=== PATIENT | male | born 1960 | race Hispanic/Latino ===

== ENCOUNTER 2024-02-05 08:00 | Outpatient (RCR) | payer OTHER, SELFPAY ==
[2024-01-07 14:25] VITALS: BP_SYST 145
--- NOTE | 2024-01-07 15:28 | OPREHPOC ---
Outpatient Therapy Plan of Care This is a Multidisciplinary Plan of Care that may contain components documented by all disciplines (PT, OT, and ST.) PT Problem 1 PT Problem #1 Knowledge Deficit PT Goal 1 Goal *indep with HEP * correct body position with exercises Target Visit 6 PT Problem 2 PT Problem #2 Pain PT Goal 1 Goal 1* pain at worst of 7/10 Target Visit 6 PT Problem 3 PT Problem #3 Impaired Strength PT Goal 1 Goal increase strength of R shoulder to improve use of his dominant UE: in standing: active x 10 reps: 1* flexion to 100' 2* abduction to 95' Target Visit 6
--- NOTE | 2024-01-07 15:28 | PTOPEVAL1 ---
Assessment and note entered by Janett Hidalgo, PT Evaluation Information Assessment Status Evaluation Diagnosis R shoulder pain Onset May 2023 Subjective Information no trauma to arm, but arm swollen and turned black and blue when woke up one morning; did xrays and MRI- per pt: muscle atrophy of shoulder and shoulder is not in the correct place, ball is falling out of the socket; Is scheduled for R total shoulder replacement surgery on Apr 16; Activity: retired; R handed; due to shoulder issues, cannot do much overhead work; can use R arm if it is at his side; have not been doing any exercises for fitness on R shoulder/arm but use it; Reported Pain Level Pain Score Self Report Additional Pain Score Comments pain range in the past week 2-10/10; pain at top of shoulder and on down into upper arm; have lots of crackling and noises in shoulder; increase pain: with sleeping in same position, overhead reach decrease pain: let arm hang down; have not been using ice or heat over shoulder-- instruct on PRN use; with initial injury, used sling to support arm, does not have any type of brace; issued picture of humeral sling to pt for support to GH joint & discussed with pt; Assessment PT Clinical Summary Ronald has the diagnosis of R shoulder pain. He is scheduled in Mar for total shoulder replacement. He is R hand dominant, retired and remains active. Due to shoulder pain- limited use of R arm for overhead activity. With the evaluation: he has good shoulder ROM with decreased strength with flexion and abduction motions and subluxation of GH joint. Skilled PT services are indicated for modalities PRN for pain control; therapeutic exercises to increase shoulder strength and education for HEP and pain management. Monitor pain during session and activity. Plan of Care Interventions Electrical Stimulation,Hot Pack/Cold Pack,Manual Therapy,Neuro Re-education,Patient Education,Thera
--- NOTE | 2024-02-05 08:55 | PTOPDC ---
Assessment and note entered by Chloé Ramirez, PT Evaluation Information Assessment Status Discharge Diagnosis R shoulder pain Onset May 2023 Subjective Information Pt states sleep and tossing and turning still has discomfort in shoulder. Feels this has been helpful, is trying to be conscious of the muscles and doing exercises as directed. Cracking and popping and pain with that, limited use to wash neck still problematic. Still can't lift arm on it's own. Gardening and remodeling home has to use LUE to lift RUE. Reported Pain Level Pain Score 3: Self Report Assessment PT Clinical Summary Pt reports his function is still the same as previously however he feels more educated and aware of his muscles and how to use them properly. He feels independent in his home exercises, has been provided blue theraband and reviewed HEP. Pt has met 1/3 and partially met 2/3 PT goals. Pt has also been encouraged to return to PT between now and surgical date if he feels he is in need of skilled services. Otherwise pt is being discharged from therapy services for completion of program. Plan of Care PT Services Indicated No
== END 2024-02-10 13:49 | disposition home or self-care (01) ==
LOC: ANHHIPT 08:00
DX: M12.811 Other specific arthropathies, not elsewhere classified, right shoulder (principal)
CPT/HCPCS: 97110; 97140; 97161; 97530; 97750

== ENCOUNTER 2024-07-27 09:30 | Outpatient (RCR) | payer OTHER, SELFPAY ==
--- NOTE | 2024-05-06 08:58 | PTOPEVAL1 ---
Assessment and note entered by Sukhjinder Paul Evaluation Information Assessment Status Evaluation Diagnosis Z89.231 s/p reverse arthroplasty of the right shoulder Onset 04/16/24 Subjective Information Pt. reports that he underwent surgery on 04/16/24. He states that he wore a sling for the first 2 weeks post op and now is only wearing the sling in crowded areas. He states that he has been informed to not reach behind his back and over his head. He states that he is having difficulty with sleep due to inability to sleep on his right side and pain. He reports that prior to surgery he was active with yard work and taking care of his home. He was limited by pain, but independent with with all IADL's. He reports that he is retired. He states that he is completing all basic activities of daily living, however is limited with heavy activities since surgery. He reports that his goal is to improve shoulder mobility and normalize the use of the right arm as much as possible. He is right hand dominant. Reported Pain Level Pain Score 5: Self Report Assessment PT Clinical Summary Pt. is a 63 year old male who enters the clinic s/ p reverse total shoulder arthroplasty on the right . He presents with objective findings of limited ROM, impaired strength, pain and functional decline. Continued skilled PT is indicated in order to improve these areas to allow the pt. to return to normal IADL performance without limitation. Plan of Care Interventions Electrical Stimulation,Hot Pack/Cold Pack,Manual Therapy,Neuro Re-education,Patient/Caregiver Educati,Therapeutic Activities,Therapeutic Exercise PT Services Indicated Yes Treatment Frequency and 2x/week x 10 visits Duration These treatments will address the objective and functional deficits as defined above. The patient will be advanced safely and appropriately in order for the patient to progress towards his/her prior level of function. Additional exercises will be introduced and as well as a comprehensive home exercise program upon discharge, if needed, ?to ensure carryover of functional gains achieved in the clinic. This treatment plan has been reviewed and agreement upon by the patient.
--- NOTE | 2024-05-06 09:00 | OPREHPOC ---
Outpatient Therapy Plan of Care This is a Multidisciplinary Plan of Care that may contain components documented by all disciplines (PT, OT, and ST.) PT Problem 1 PT Problem #1 Knowledge Deficit PT Goal 1 Goal / Goal Update Pt. will be independent with a HEP focused on ROM sikh. Target Visit 2 PT Problem 2 PT Problem #2 Impaired Range of Motion PT Goal 1 Goal / Goal Update Pt. will achieve 130 degrees active right shoulder flexion against gravity to assist with ease of grooming. Pt. will be able to reach to the occiput demonstrating improvements in active ER for ease of grooming. Target Visit 10 PT Problem 3 PT Problem #3 Impaired Strength PT Goal 1 Goal / Goal Update Pt. will demonstrate 3/5 right shoulder flexion and ER strength(6 visits) Pt. will be appropriate to advance to isometric strengthening activities (10 visits) Target Visit 10 PT Problem 4 PT Problem #4 Pain PT Goal 1 Goal / Goal Update Pt. will reduce pain to 2/10 at worst with functional activities. Target Visit 10
--- NOTE | 2024-05-28 09:45 | PCPTNOTE ---
Pt was called 5 min after appt time. Stated he completely forgot about appt. Was reminded of appt next week.
[2024-06-03 08:53] VITALS: BP_SYST 130
--- NOTE | 2024-06-03 11:01 | PTOPPROG ---
Assessment and note entered by Chloé Ramirez, PT Evaluation Information Assessment Status Progress Diagnosis Z89.231 s/p reverse arthroplasty of the right shoulder Onset 04/16/24 Subjective Information Pt reports has been doing well with pain. Is still in phase 1 (3-8 weeks) limiting ROM Still not sleeping well. Was doing ok for a little and is not totally due to shoulder . Is able to take 4 aspirin a day via surgeon protocol, 2 right before bed. Pt reports has some left over oxycodone hasn't tried to take it. Assessment PT Clinical Summary Pt hsa attended therapy consistently for his right shoulder replacement 04/16/2024. He is currently 7 weeks post-op and in phase 1 of protocol. He demo 's improved ROM up to limits of restrictions, increased strength, decreased pain, and decreased perceived disability. He is doing well with his home program as well. Pt appears to be progressing appropriately within protocol and will benefit from continued physical therapy to continue advancing through protocol and return to OF. Plan of Care Interventions Electrical Stimulation,Hot Pack/Cold Pack,Manual Therapy,Neuro Re-education,Patient/Caregiver Educati,Therapeutic Activities,Therapeutic Exercise PT Services Indicated Yes Treatment Frequency and Cont 1-2x weekly x 20 visits Duration These treatments will address the objective and functional deficits as defined above. The patient will be advanced safely and appropriately in order for the patient to progress towards his/her prior level of function. Additional exercises will be introduced and as well as a comprehensive home exercise program upon discharge, if needed, ?to ensure carryover of functional gains achieved in the clinic. This treatment plan has been reviewed and agreement upon by the patient.
--- NOTE | 2024-06-03 11:02 | PTOPPROG ---
Assessment and note entered by Chloé Ramirez, PT Evaluation Information Assessment Status Progress Diagnosis Z89.231 s/p reverse arthroplasty of the right shoulder ICD-10 Condition Codes (PT) M25.511,Weakness R53.1 Onset 04/16/24 Subjective Information Pt reports has been doing well with pain. Is still in phase 1 (3-8 weeks) limiting ROM Still not sleeping well. Was doing ok for a little and is not totally due to shoulder . Is able to take 4 aspirin a day via surgeon protocol, 2 right before bed. Pt reports has some left over oxycodone hasn't tried to take it. Assessment PT Clinical Summary Pt hsa attended therapy consistently for his right shoulder replacement 04/16/2024. He is currently 7 weeks post-op and in phase 1 of protocol. He demo 's improved ROM up to limits of restrictions, increased strength, decreased pain, and decreased perceived disability. He is doing well with his home program as well. Pt appears to be progressing appropriately within protocol and will benefit from continued physical therapy to continue advancing through protocol and return to PLOF. Plan of Care Interventions Electrical Stimulation,Hot Pack/Cold Pack,Manual Therapy,Neuro Re-education,Patient/Caregiver Educati,Therapeutic Activities,Therapeutic Exercise PT Services Indicated Yes Treatment Frequency and Cont 1-2x weekly x 20 visits Duration These treatments will address the objective and functional deficits as defined above. The patient will be advanced safely and appropriately in order for the patient to progress towards his/her prior level of function. Additional exercises will be introduced and as well as a comprehensive home exercise program upon discharge, if needed, ?to ensure carryover of functional gains achieved in the clinic. This treatment plan has been reviewed and agreement upon by the patient.
[2024-07-13 09:31] VITALS: BP_SYST 110
--- NOTE | 2024-07-13 10:19 | PTOPPROG ---
Assessment and note entered by Chloé Ramirez, PT Evaluation Information Assessment Status Progress Diagnosis Z89.231 s/p reverse arthroplasty of the right shoulder ICD-10 Condition Codes (PT) Pain in right shoulder M25.511,Weakness R53.1 Onset 04/16/24 Subjective Information Pt reports feeling 75% better overall. Last 25% is more ROM without pain like reaching behind my back, reaching out to side and back without pain. Thinks strength is there but needs to keep stretching. Has been able to start working on drywall in small sections. States was able to wheel yocha dehe a load of firewood in yesterday without pain or stress. Had one instance of reaching back to give a tablet to his and reached a 10/10 and had a flash of light from the pain but only took 1-2 minutes to return to normal Assessment PT Clinical Summary Pt has attended therapy consistently for right total shoulder replacement 04/16/24. He reports feeling 75% improved overall, usually only has pain up to a 3/10 (with one exception recently). Also cont. to show improving passive and active ROM, recently has had some pain and pinching in the posterior and superior glenohumeral joint with true abduction and external rotation that can be resolved with muscle energy techniques. Also continues to demonstrate overall weakness of EILEEN compared to RUIZE though he is improving in endurance and functional use at home challenging himself appropriately. Pt will benefit from continued therapy for final phases of rehab post- op TSA and to meet his goals. Plan of Care Interventions Electrical Stimulation,Hot Pack/Cold Pack,Manual Therapy,Neuro Re-education,Patient/Caregiver Education,Therapeutic Activities,Therapeutic Exercise PT Services Indicated Yes Treatment Frequency and 1-2x weekly x 16 visits Duration These treatments will address the objective and functional deficits as defined above. The patient will be advanced safely and appropriately in order for the patient to progress towards his/her prior level of function. Additional exercises will be introduced and as well as a comprehensive home exercise program upon discharge, if needed, ?to ensure carryover of functional gains achieved in the clinic. This treatment plan has been reviewed and agreement upon by the patient.
--- NOTE | 2024-07-23 13:10 | PCPTNOTE ---
Department called & cancelled scheduled appointment 07/22/2024 due to staffing shortage
[2024-07-27 09:27] VITALS: BP_SYST 140
--- NOTE | 2024-07-27 10:23 | PTOPPROG ---
Assessment and note entered by Chloé Ramirez, PT Evaluation Information Assessment Status Re-evaluation Diagnosis Z89.231 s/p reverse arthroplasty of the right shoulder ICD-10 Condition Codes (PT) Pain in right shoulder M25.511,Weakness R53.1 Onset 04/16/24 Subjective Information Feels even better, is doing more. Feels he is getting more aggressive with drywall, and shoveling snow. Getting less twinges with activity , has to be in odd positions to get the twinges. Had some pain within the week, was sleeping odd and repositioned and pain resolved. Assessment PT Clinical Summary Pt has attended therapy consistently for total shoulder replacement 04/16/24. Pt demonstrates greatly improved and functional active ROM, improved reported function and pain. Isolated testing shows decreased true abduction range, continued decreased functional internal rotation, continued decreased external rotation strength severe. Pt reports feeling over 75% improved overall and reports is being more aggressive with his activities at home such as dry walling, and use of chain saw outdoors. Pt could benefit from continued therapy to continue focusing on strengthening especially external rotation. Plan of Care Interventions Electrical Stimulation,Hot Pack/Cold Pack,Manual Therapy,Neuro Re-education,Patient/Caregiver Education,Therapeutic Activities,Therapeutic Exercise PT Services Indicated Yes Treatment Frequency and 1-2x weekly x 4 weeks Duration These treatments will address the objective and functional deficits as defined above. The patient will be advanced safely and appropriately in order for the patient to progress towards his/her prior level of function. Additional exercises will be introduced and as well as a comprehensive home exercise program upon discharge, if needed, ?to ensure carryover of functional gains achieved in the clinic. This treatment plan has been reviewed and agreement upon by the patient.
== END 2024-08-04 23:59 | disposition home or self-care (01) ==
LOC: ANHHIPT 09:30
DX: Z47.1 Aftercare following joint replacement surgery (principal); Z48.89 Encounter for other specified surgical aftercare; M25.511 Pain in right shoulder; Z96.611 Presence of right artificial shoulder joint
CPT/HCPCS: 97014; 97110; 97112; 97140; 97161; 97750; G0283

== ENCOUNTER 2024-09-16 06:47 | Outpatient (CLI) | payer OTHER, SELFPAY | END 2024-09-16 06:48 | disposition home or self-care (01) | PROVIDERS: Visit Provider Emergency Medicine | DX: S83.27 Complex tear of lateral meniscus, current injury (principal); S83.231A Complex tear of medial meniscus, current injury, right knee, initial encounter; S83.511A Sprain of anterior cruciate ligament of right knee, initial encounter; S83.521A Sprain of posterior cruciate ligament of right knee, initial encounter; S83.411A Sprain of medial collateral ligament of right knee, initial encounter; X58.XXXA Exposure to other specified factors, initial encounter; D17.23 Benign lipomatous neoplasm of skin and subcutaneous tissue of right leg; M17.11 Unilateral primary osteoarthritis, right knee; M25.461 Effusion, right knee; S83.104D Unspecified dislocation of right knee, subsequent encounter | CPT/HCPCS: 73721 ==